=== PATIENT | male | born 1970 | race Caucasian/White ===

== ENCOUNTER 2019-01-01 11:05 | Day surgery (SDC) | payer OTHER ==
[~2019-01-01 11:05] MED LIST: Betamethasone Acetate/Betamethasone Sod Phosphate 30 MG/5 ML MDV EPIDUR ONE; Lidocaine 2% 5 ML SDV INJECT ONE; Ropivacaine 0.5% 5 MG/ML 30 ML SDV INJECT ONE
--- NOTE | 2019-01-02 08:39 | OR ---
SURGEON: Indigo Mckeon D.O. DATE OF PROCEDURE: 01/01/2019 PRIMARY SURGEON: Indigo Mckeon D.O. HAIR BALER: OR staff present: 1. Alvaro Araiza RN. 2. Barbara Green RT. WOUND CLASS: I. PREOPERATIVE DIAGNOSES: 1. Lumbar facet arthropathy. 2. Lumbar degenerative disk diseaseL4-5,L5-S1 3. Chronic low back pain. POSTOPERATIVE DIAGNOSES: 1. Lumbar facet arthropathy. 2. Lumbar degenerative disk disease L4-5, L5-S1. 3. Chronic low back pain. PROCEDURE PERFORMED: 1. Bilateral L4-L5 and L5-S1 facet injection. 2. Fluoroscopic guidance for needle placement. 3. Local with oral valium for sedation. SCREENING QUESTIONS: The patient answered "No" to all the following questions: 1. Are you allergic to iodine, Betadine or latex? Yes 2. Do you have a bleeding disorder? 3. Are you on anti-inflammatories or blood thinners? 4. Do you have any current local or systemic infections? DESCRIPTION OF PROCEDURE: The patient had the procedure thoroughly explained including risks, benefits and alternatives. Consent was signed in my clinic indicating understanding and willingness to proceed. The patient presented to [facility] and was escorted to the dressing room to disrobe and change into a hospital gown. Preoperative history and screening were performed by my nurse. Vital signs were taken and stable. The patient reported that Valium 10 milligrams was taken prior to the procedure. The patient was brought back to the procedure room and placed in the prone position on the procedure room table. A pillow was placed under the abdomen in order to flatten the lumbar lordosis. The back was prepped with ChloraPrep and sterilely draped. All personnel in the procedure room were dressed in appropriate attire including surgical scrubs, head and shoe covers. This was to ensure sterility while in the treatment room. During the time fluoroscopy was in use all personnel in the operating room wore lead smith with thyroid collars. Sterile technique was used during the procedure. Then the fluoroscope was positioned to provide a right oblique view for the right L4- L5 facet joint. This was begun by anesthetizing the skin and soft tissues. The fluoroscope was positioned and a sterile 22-gauge 3.5 inch needle was placed at the junction of the "ear of the alis dog" at L4-5. Precise needle placement was confirmed by fluoroscopy. Then after negative aspiration of heme, CSF and no paresthesias noted a mixture of 1.0 Celestone and of 0.5% Ropivacaine was injected without complications. The fluoroscope was then positioned to provide a right L5-S1 facet injection under fluoroscopy This was begun by anesthetizing the skin and soft tissues over the right target joint. Then using fluoroscopic guidance, a sterile 22-gauge 3.5 inch spinal needle was positioned. Precise needle placement was confirmed by fluoroscopy in AP and oblique views. After negative aspiration through microbore tubing, 1 cubic centimeters of Celestone and 0.5% Ropivacaine was injected. No complications were noted. The fluoroscope was positioned then to provide a left L4-5 facet injection. The skin was anesthetized. Then a 22-gauge 3.5 inch spinal needle was positioned at the junction of the "ear of the Alis dog "at L4-5 facet joints on the left. Precise needle placement was confirmed by fluoroscopy in AP lateral and oblique views and after negative aspiration for heme or CSF through micro-port tubing. Then 1.0 cubic centimeters of Celestone and 0.5% Ropivacaine was injected after negative aspiration without complications. Then the fluoroscope was positioned for the left L5-S1 facet joint injection. This was begun by anesthetizing the skin and soft tissues. Then with fluoroscopic guidance a sterile 22-gauge 3.5 inch spinal needle was positioned at the left L5-S1 "ear of the Alis dog" facet joints. Precise needle placement was confirmed under live fluoroscopy. After negative aspiration, 1.0 cubic centimeters of Celestone and 0.5% Ropivacaine was injected without complications. The procedure was well tolerated and vital signs were stable during and after the procedure. The staff escorted the patient to the recovery area. The patient was given both oral and written discharge and followup instructions. The patient will follow up with a pain diary which will be evaluated over this evening doing things that would normally cause pain. We will evaluate the efficacy of the diagnostic lumbar medial branch blocks as the patient will follow up in the clinic the next day. The patient was given both oral and written discharge and followup instructions. The patient voiced understanding including understanding of those signs and symptoms that would require emergency care and knows how to contact the office if there are any questions or concerns in the meantime. PREPROCEDURE PAIN: 6/10 to 9/10. POSTPROCEDURE PAIN: 03/13. PLAN: Follow up in 3 weeks with pain diary. TJ / AMANDA /[id number] MTDD
== END 2019-01-01 13:27 ==
LOC: MW.SDS 11:05
PROVIDERS: ATTEND Anesthesiology
DX: G89.29 Other chronic pain (principal); M51.36 Other intervertebral disc degeneration, lumbar region; M51.37 Other intervertebral disc degeneration, lumbosacral region; M47.816 Spondylosis without myelopathy or radiculopathy, lumbar region; M40.46 Postural lordosis, lumbar region
CPT/HCPCS: J0702